=== PATIENT | male | born 1995 | race Caucasian/White ===

== ENCOUNTER 2018-04-29 07:44 | Emergency (ER) | payer MEDICAID, SELFPAY ==
[2018-04-29 07:45] VITALS: BP 133/96; PULSE 71; RESP 16; TEMP 36.6; O2SAT 98; BMI 29.4
--- NOTE | 2018-04-29 08:03 | ED.VISSUMM ---
- ER Visit Summary Date of Service: 04/29/18 Chief Complaint: Bilateral feet rash History of Present Illness: The patient is a 22 M who presents with a rash to both feet in the distribution of where he was wearing his boots for work. It was quite hot outside. It is itchy. No fever or chills. Physical Examination: Otherwise unremarkable exam he has a blanching rash in the distribution of his boots 2 mm raised lesions without any signs of infection. Emergency Department Course and Treatment: Patient was reassured and educated about wearing his boots and hot environment changing socks often and using baby powder. Disposition: Discharged in stable condition Impression: Lateral foot heat rash This note was generated with [employer] dictation software. It may contain incorrect words, spelling, and punctuation that were not noted in review of the chart prior to signing ED Disposition - Plan for ED Patient: Disposition: Home or Assisted Living Chief Complaint: Rash Instructions: ED Allergic Reaction General Other Referrals: Vinay Traore MD [Primary Care Provider] - 2 Days
--- NOTE | 2018-04-29 08:06 | ED.DCSUM_ITS ---
- ER Visit Summary Date of Service: 04/29/18 Chief Complaint: Bilateral feet rash History of Present Illness: The patient is a 22 M who presents with a rash to both feet in the distribution of where he was wearing his boots for work. It was quite hot outside. It is itchy. No fever or chills. Physical Examination: Otherwise unremarkable exam he has a blanching rash in the distribution of his boots 2 mm raised lesions without any signs of infection. Emergency Department Course and Treatment: Patient was reassured and educated about wearing his boots and hot environment changing socks often and using baby powder. Disposition: Discharged in stable condition Impression: Lateral foot heat rash This note was generated with [employer] dictation software. It may contain incorrect words, spelling, and punctuation that were not noted in review of the chart prior to signing ED Disposition - Plan for ED Patient: Disposition: Home or Assisted Living Chief Complaint: Rash Instructions: ED Allergic Reaction General Other Referrals: Vinay Traore MD [Primary Care Provider] - 2 Days
--- NOTE | 2018-04-29 08:08 | ED.DEP ---
ED Disposition - Plan for ED Patient: Disposition: Home or Assisted Living Chief Complaint: Rash Instructions: ED Allergic Reaction General Other, ED Erythema Referrals: Vinay Traore MD [Primary Care Provider] - 2 Days
== END 2018-04-29 08:41 | disposition home or self-care (01) ==
PROVIDERS: Emergency Provider Emergency Medicine; Family Provider Pediatrics; PCP Pediatrics
DX: L74.0 Miliaria rubra (principal); F90.9 Attention-deficit hyperactivity disorder, unspecified type; Z72.0 Tobacco use; Z79.899 Other long term (current) drug therapy
CPT/HCPCS: 99282